=== PATIENT | female | born 1985 | race African-American/Black ===

== ENCOUNTER → 2021-02-10 | Day surgery (SDC) | payer OTHER, BC | END | disposition home or self-care (01) | LOC: JRADUS-SUR 09:29 | PROVIDERS: ATTEND Obstetrics & Gynecology | PROC: BU081ZZ Plain Radiography of Uterus and Fallopian Tubes using Low Osmolar Contrast (ICD-10-PCS; principal; 2021-02-10) | DX: Z31.41 Encounter for fertility testing (principal) | CPT/HCPCS: 36415; 58340; 74740-TC-FY; 76000-TC-FY; 84702 ==

== ENCOUNTER 2022-02-02 04:26 | Inpatient (IN) | payer BC, OTHER ==
[2022-02-01 10:56] VITALS: BMI 29.9
[2022-02-02] MEDS ORDERED: FENTANYL CITRATE/PF 50 MCG/ML VIAL ONE ×2 (11:17→14:22)
[2022-02-02] MEDS ORDERED: MIDAZOLAM HCL 2 MG/2 ML SINGLE DOSE VIAL ONE ×2 (11:17→14:25)
[2022-02-02] MEDS ORDERED: BUPIVACAINE HCL/PF 0.25% (2.5MG/ML) 10 ML VIAL ONE (11:51)
[2022-02-02] MEDS ORDERED: BUPIVACAINE LIPOSOME/PF (EXPAREL) 266 MG/20 ML VIAL ONE (11:51)
[2022-02-02] MEDS ORDERED: ROCURONIUM BROMIDE 50 MG/5 ML SYRINGE ONE ×2 (12:13→14:24)
[2022-02-02] MEDS ORDERED: PROPOFOL 20 ML ONE ×3 (12:13→14:33)
[2022-02-02] MEDS ORDERED: LIDOCAINE HCL/PF 2% SDV 5ML VIAL ONE ×2 (12:13→14:22)
[2022-02-02] MEDS ORDERED: ONDANSETRON 4 MG/2 ML VIAL IVPUSH PRN ×2 (12:24→15:19)
[2022-02-02] MEDS ORDERED: LACTATED RINGERS SOLUTION 1,000 ML IV SCH (12:30)
[2022-02-02] MEDS ORDERED: KETOROLAC TROMETHAMINE 30 MG/1 ML VIAL ONE (12:51)
[2022-02-02] MEDS ORDERED: DEXAMETHASONE SOD PHOSPHATE 4 MG/1 ML VIAL ONE ×3 (12:51→15:01)
[2022-02-02] MEDS ORDERED: ceFAZolin SODIUM 1 GM VIAL ONE ×2 (12:51→14:30)
[2022-02-02] MEDS ORDERED: HYDROmorphone HCl 2 MG/ML VIAL ONE (12:52)
[2022-02-02] MEDS ORDERED: ceFAZolin SODIUM 1 GM VIAL IVPB ONE (12:55)
[2022-02-02] MEDS ORDERED: METHYLENE BLUE 50 MG/10 ML AMPUL ONE ×2 (13:32→14:13)
[2022-02-02] MEDS ORDERED: ISOSULFAN BLUE 50 MG/5 ML VIAL SQ ONE (13:33)
[2022-02-02] MEDS ORDERED: SUCCINYLCHOLINE CHLORIDE 200 MG/10 ML SYRINGE ONE (14:32)
[2022-02-02] MEDS ORDERED: BENZOIN/ALOE VERA/STORAX/TOLU 58 ML BOTTLE ONE (14:50)
[2022-02-02] MEDS ORDERED: IBUPROFEN 600 MG TABLET (FP) PO PRN (15:19)
[2022-02-02] MEDS ORDERED: IBUPROFEN 800 MG/8 ML IJ IVPB PRN (15:19)
[2022-02-02] MEDS ORDERED: HYDROmorphone *PCA* 10MG/50ML DISP.SYRIN ONE (15:38)
[2022-02-02] MEDS: ELECTROLYTE-148 SOLN 1,000 ML IV SCH (17:00)
[2022-02-02] MEDS ORDERED: HYDROmorphone *PCA* 10MG/50ML DISP.SYRIN PCA ONE (17:00)
[2022-02-02] MEDS: HYDROmorphone *PCA* 10MG/50ML DISP.SYRIN PCA SCH (17:41)
[2022-02-03] MEDS: CEFAZOLIN 500 MG in DEXTROSE 5%-WATER - 50 ML IVPB SCH ×3 (03:39→17:00)
[2022-02-03] MEDS: KETOROLAC TROMETHAMINE 10 MG TABLET PO SCH ×3 (07:02→21:44)
[2022-02-03] MEDS: ENOXAPARIN NA (PORCINE) 40 MG/0.4 ML DISP.SYRIN SQ SCH (09:46)
[2022-02-03 10:24] LABS: BASO % 0.2 % (0-2.0); EOS % 0.1 % (0-4.5); HEMATOCRIT 34.6 % (32.4-45.2); HEMOGLOBIN 11.3 GM/dL (10.7-15.3); LYMPH % 13.4 % (8-40); MCH 28.2 pg (25.7-33.7); MCHC 32.7 g/dl (32.0-36.0); MEAN CELL VOLUME 86.1 fl (80-96); MEAN PLT VOLUME 8.3 fl (7.5-11.1); MONO % 9.4 % (3.8-10.2); NEUT % 76.9 % (42.8-82.8); PLATELET COUNT 316 10^3/uL (134-434); RBC 4.02 M/mm3 (3.60-5.2); RDW 12.7 % (11.6-15.6); WHITE BLOOD COUNT 8.3 K/mm3 (4.0-10.0)
[2022-02-03] MEDS: ELECTROLYTE-148 SOLN 1,000 ML IV SCH ×2 (11:28→16:37)
[2022-02-03] MEDS: HYDROmorphone *PCA* 10MG/50ML DISP.SYRIN PCA SCH (16:37)
[2022-02-03] MEDS: oxyCODONE HCL 5 MG TABLET PO PRN (21:37)
[2022-02-04] MEDS: oxyCODONE HCL 5 MG TABLET PO PRN (04:37)
[2022-02-04] MEDS: KETOROLAC TROMETHAMINE 10 MG TABLET PO SCH ×3 (08:14→21:12)
[2022-02-04] MEDS: ENOXAPARIN NA (PORCINE) 40 MG/0.4 ML DISP.SYRIN SQ SCH (09:27)
[2022-02-04] MEDS: ELECTROLYTE-148 SOLN 1,000 ML IV SCH (16:10)
[2022-02-04 23:14] VITALS: PULSE 78; RESP 18
[2022-02-05 05:08] VITALS: BP 110/78; TEMP 98.7
[2022-02-05] MEDS: KETOROLAC TROMETHAMINE 10 MG TABLET PO SCH (05:48)
[2022-02-05] MEDS: ENOXAPARIN NA (PORCINE) 40 MG/0.4 ML DISP.SYRIN SQ SCH (10:13)
== END 2022-02-05 12:00 | disposition home or self-care (01) | DRG 743 ==
LOC: J2C 04:26 → J8W 17:38
PROVIDERS: ADMIT Obstetrics & Gynecology; ATTEND Obstetrics & Gynecology
PROC: 3E1P38Z Irrigation of Female Reproductive using Irrigating Substance, Percutaneous Approach (ICD-10-PCS; 2022-02-02)
PROC: 0UB90ZZ Excision of Uterus, Open Approach (ICD-10-PCS; principal; 2022-02-02 12:00)
DX: D25.9 Leiomyoma of uterus, unspecified (principal)
CPT/HCPCS: 36415; 81025; 85025; 86850; 86900; 86901; 88305-TC; 94760; Q9968